=== PATIENT | male | born 1980 | race Caucasian/White ===

== ENCOUNTER → 2018-11-21 | Outpatient (CLI) | payer OTHER, SELFPAY ==
--- NOTE | 2018-11-21 15:51 | MRI_ITS ---
HISTORY: Severe thoracic back pain COMPARISON: CT chest 06/19/2017 TECHNIQUE: Multisequence multiplanar MR imaging of the thoracic spine was performed per department protocol without IV gadolinium. # of images incl. paperwork: 172 FINDINGS: There is diffuse abnormal marrow signal involving the entire T6 and T7 vertebral bodies extending into bilateral pedicles as seen by decreased signal on T1, isointense signal on T2, and hyperintense signal on STIR weighted imaging. Due to posterior extension of tumor there is borderline cord compression throughout the T6 and T7 vertebral body levels with severe canal stenosis. Severe bilateral foraminal stenosis at T6-T7. No pathologic compression fracture. Remaining thoracic vertebra demonstrate normal signal characteristics without additional foci of metastasis. Thoracic alignment is within normal limits. No acute fracture or subluxation. Thoracic vertebral bodies are normal in height. Mild to moderate anterior marginal osteophytes from T8-T10. Other than the borderline cord compression at T6 and T7, above and below these levels, the thoracic cord is normal in caliber, morphology, and signal characteristics. Mild to moderate disc space narrowing from the T4-T5 through the T10-T11 level. There is hyperintense signal within the disc space at the T6-T7 level representing edema secondary to reactive changes. At the T6-T7 level, there is severe canal and severe bilateral foraminal stenosis. Severe canal stenosis at the T6 and T7 vertebral body levels. Above and below this level, the remainder of the thoracic spine demonstrates no significant disc bulge, disc protrusion, canal stenosis or foraminal stenosis. Best seen along the right aspect of the T10 vertebra, series 4, image 21, are 2 subjacent structures with these solid appearing lesion measuring 2.0 x 2.0 cm most likely representing metastatic lymphadenopathy. The smaller somewhat cystic appearing structure measures 1.3 x 1.0 cm and cannot be further characterized. Remainder of the paravertebral soft tissues are otherwise unremarkable. MRI/Spine Thoracic (Routine) IMPRESSION: 1. 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 There is borderline cord compression with severe canal stenosis throughout the T6 and T7 vertebral body levels. Severe bilateral foraminal stenosis at T6-T7. 2. No pathologic compression fractures. 3. Right T10 paravertebral body probable metastatic lymphadenopathy measuring 2 x 2 cm. at 2225 Reported and signed by: Donny Brownlee MD N.B. : The above information has been verbally conveyed by Donny Brownlee MD to Dr. Kelsey MD, on 11/21/2018 22:07:05 (ET). Electronically Signed: Donny Brownlee MD at 22:23 EDT Tel , Service support ,
== END | disposition home or self-care (01) ==
LOC: MRI 15:28
PROVIDERS: Family Provider Nurse Practitioner; PCP Nurse Practitioner; Referring Provider Nurse Practitioner; Visit Provider Nurse Practitioner
DX: M54.9 Dorsalgia, unspecified (principal)
CPT/HCPCS: 72146